=== PATIENT | male | born 1950 | race Caucasian/White ===

== ENCOUNTER → 2017-04-16 | Day surgery (SDC) | payer MEDICARE ==
[~2017-04-16] VITALS: Ht 177.8 cm; Wt 82.1 kg
[~2017-04-16] MED LIST: *ONDANSETRON 4 MG VIAL PERIprocedural Use ONLY ONE; ACETAMINOPHEN 1000 MG/100 ML 100 ML IV ONE; ACETAMINOPHEN/HYDROcodone 325 MG/7.5 MG TAB PO PRN; AMLO10TA2 PO; ATOR10TA15 PO; BETAMETHASONE SOD PHOS/ACETATE SUSP 30 MG/5 ML VIAL ONE; BUPIVACAINE/EPINEPHRINE 0.25% 50 ML VIAL ONE; CHLORHEXIDINE GLUCONATE 2 % 1 PACK (2 CLOTHS) TOPICAL PRN; CHLORHEXIDINE GLUCONATE 4% SOLN 120 ML BTL TOPICAL SCH; DO NOT ADM ANY ANTICOAGULANT DRUGS PRN; FAMOTIDINE 20 MG/2 ML VIAL ONE; GELATIN 12 MM/7 MM FOAM ONE; GENTAMICIN SULFATE 80 MG/2 ML VIAL ONE; GLYCOPYRROLATE 1 MG/5 ML SYRINGE IV PUSH ONE; HYDR-3288 PO; KETOROLAC TROMETHAMINE 30 MG/ML (IVP) VIAL IV PUSH ONE; LACTATED RINGER'S 1000 ML IV PRN; LEVO88TA2 PO; LIDOCAINE HCL 1% PF 5 ML SYRINGE OTHER ONE; LISI-515 PO; METF1000 PO; METOPROLOL TARTRATE 25 MG TAB PO PRN; MIDAZOLAM HCL 2 MG/2 ML VIAL ONE; MORPHINE SULFATE 2 MG/ML INJ IV PRN; NEOSTIGMINE 5 MG/5 ML SYRINGE IV PUSH ONE; NITR0.2D T-DERMAL; ONDANSETRON HCL 4 MG/2 ML VIAL IV ONE; PHENYLEPHRINE HCL 10 MG/ML VIAL IV ONE; PLAV75TA29 PO; POVIDONE IODINE 5% (ANTISEPSIS KIT) 4 APPLICATIONS EACH NARE PRN; PROPOFOL 200 MG/20 ML AMP IV ONE; ROCURONIUM INJ 50 MG/5 ML SYRINGE IV PUSH ONE; SODIUM CHLOR 0.9% 1000 ML INJ 1,000 ML IV SCH; SODIUM CHLORID 0.9% 500 ML IV PRN; SODIUM CHLORIDE 10 ML FLUSH BID IV FLUSH SCH; SODIUM CHLORIDE 10 ML FLUSH PRN IV FLUSH; ceFAZolin 2 GM PREMIX 50 ML IV SCH
--- NOTE | 2017-04-16 11:15 | PD.OP ---
cc: Сергей Richey. Operative Report Date of Surgery: Apr 16, 2017 Preoperative Diagnosis: lumbar spinal stenosis, L4 5. Herniated nucleus pulposus L4 5, central. Bilateral lumbosacral radiculopathy, left greater than right Postoperative Diagnosis: Same Procedure: Bilateral lumbar laminectomy from the left L4, L5, lateral recess decompression , bilateral. Resection herniated nucleus pulposus L4 5. Use of dilation port and microscope Anesthesia: Gen. Surgeon: Сергей Richey Career Specialist(s): ADDY Pagan Operation and Findings: EBL: 50 cc INDICATION: Patient is a 66-year-old male with significant bilateral leg pain. Investigative studies shows evidence of a high-grade spinal stenosis at L4 5 associated with a large sequestered central disc herniation at the same level. He presents for surgical treatment. NOTE: Divya Pagan PA-C was present for the entire surgical procedure as my assistant analyst. In my medical opinion her skill and care was necessary for the proper management of this patient. PROCEDURE: The patient was brought to the operating room and anesthetized in the supine position. The patient was rolled to a prone position on a Salomon frame on a Deo table. All pressure points were protected in the back was scrubbed with alcohol followed by Hibiclens followed by ChloraPrep and draped sterilely. A timeout was done and antibiotics were given. AP and lateral radiographic images were used to identify the proper levels and perform skin markings. We started from the left side at the L4 5 level. A paramedian incision was made and an off-midline fascial incision was made. A dilating system was placed down to the interlaminar space and held provisionally to the side of the table. The microscope was brought into the field. A high-speed bur under the microscope was used to perform a bilateral laminectomy from that side. A lateral recess decompression laterally was accomplished using straight and angled Kerrison punches. A partial medial facetectomy was accomplished. The crossing and exiting nerve roots were completely decompressed. A retractor was placed underneath the left crossing L5 nerve root. Toward midline there was a large sequestered disc herniation. Multiple fragments were removed. A small annulotomy was performed. A partial discectomy was accomplished. There was no compression upon any of the nerve roots. All the fragments were floated free from the canal. The wound was irrigated copiously. A small piece of Gelfoam with Celestone was placed into the epidural space. Hemostasis was controlled. The deep fascia was approximated with interrupted 0 Vicryl suture subcutaneous suture with 2-0 Vicryl suture and skin with running intradermal 3-0 Vicryl followed by Dermabond. A field block with local anesthesia was utilized. A sterile dressing was applied. The sponge count and needle counts and instrument counts were all correct. The patient tolerated the procedure well as taken to the recovery room in satisfactory condition. FINDINGS: Is evidence of a large sequestered disc herniation centrally. There was a high-grade bilateral lateral recess stenosis. There was no complication that was appreciated. Сергей Richey MD Apr 16, 2017 11:14
--- NOTE | 2017-04-16 12:10 | RADRPT ---
EXAM DATE/TIME: 04/16/2017 09:57 [place] COMPARISON: No previous studies available for comparison. INDICATIONS : L4-L5 Laminectomy. MEDICAL HISTORY : None. SURGICAL HISTORY : None. ENCOUNTER: Initial ACUITY: 1 day PAIN SCORE: Non-responsive. LOCATION: lumbar FINDINGS: A single lateral view of the lumbar spine was performed. There is a surgical instrument directed tow ards the L4-L5 level. CONCLUSION: Localization as described above. Sedrick Harrell MD on April 16, 2017 at 12:07 Board Certified Radiologist. This report was verified electronically.
[2017-04-16 14:00] VITALS: BP 127/60; PULSE 60; RESP 18; TEMP 97.5; O2SAT 96
== END | disposition home or self-care (01) ==
LOC: HSDC 06:42
PROVIDERS: ATTEND Orthopaedic Surgery Orthopaedic Surgery of the Spine
DX: M48.061 Spinal stenosis, lumbar region without neurogenic claudication (principal); M51.16 Intervertebral disc disorders with radiculopathy, lumbar region; I10 Essential (primary) hypertension; E78.5 Hyperlipidemia, unspecified
CPT/HCPCS: 00630; 63047; 72020; 76000; J0131; J0690; J0702; J1580; J1885; J2250; J2370; J2405; J2710; J3010; J7030; J7120

== ENCOUNTER 2018-01-14 06:31 | Inpatient (IN) ==
[2018-01-14] MEDS ORDERED: Metoprolol Tartrate 25 MG Tablet PO ONE (07:15)
[2018-01-14] MEDS ORDERED: Chlorhexidine 4% Topical 120 APPLIC/120 ML Bottle TOPICAL SCH (07:15)
[2018-01-14] MEDS ORDERED: Sodium Chlor 0.9% Inj 500 ML IV.CONT ONE (07:15)
[2018-01-14] MEDS ORDERED: Chlorhexidine Gluconate 2% 1 Pack (2 Cloths) TOPICAL ONE (07:15)
[2018-01-14] MEDS ORDERED: ceFAZolin 2 GM Premix Inj 2 GM/50 ML PIGGYBACK IV.SIG SCH (07:30)
[2018-01-14] MEDS ORDERED: Vancomycin Inj 1,000 MG in Sodium Chlor 0.9% Inj 250 ML IV.SIG SCH (07:30)
[2018-01-14] MEDS ORDERED: Sodium Chlor 0.9% Inj 40 ML, Bupivacaine Liposo PF 1.3% Inj 20 ML P-ARTICULR SCH ×2 (08:00)
[2018-01-14] MEDS ORDERED: TRANEXAMIC ACID IV.SIG SCH (08:00)
[2018-01-14] MEDS ORDERED: SODIUM CHLOR 0.9% IV.SIG SCH (08:00)
[2018-01-14] MEDS ORDERED: Bupivacaine 0.5% Inj 50 ML MDV Vial ONE (08:52)
[2018-01-14] MEDS ORDERED: Lidocaine PF 1% Inj 5 ML Vial ONE (08:52)
[2018-01-14] MEDS ORDERED: Propofol Inj 500 MG/50 ML Vial ONE (09:36)
[2018-01-14] MEDS ORDERED: Bupivacaine/Epinephrine Inj 0.25% 50 ML Vial ONE (11:14)
[2018-01-14] MEDS ORDERED: Bupivacaine/Epinephrine PF Inj 0.25% 10 ML Vial ONE (11:14)
[2018-01-14] MEDS ORDERED: Bisacodyl 10 MG Supp RECTAL PRN (13:22)
[2018-01-14] MEDS ORDERED: Morphine Inj 4 MG/ML Vial IV.PUSH PRN (13:22)
[2018-01-14] MEDS ORDERED: Post-op Orders (for Pharmacy) OTHER STA (13:22)
--- NOTE | 2018-01-14 13:28 | P.OP ---
- Preoperative Diagnosis (1) Osteoarthritis of left knee - Postoperative Diagnosis (1) Osteoarthritis of left knee Date of procedure: 01/14/18 Procedure: Left total knee arthroplasty, posterior stabilized Anesthesia: GETA Surgeon: Сергей Richey MD Glass Handler: ADDY Pagan Operation and Findings: EBL: 50 INDICATION: This patient presents with long-standing arthritis of the knee. Attachment record documents conservative measures. The patient now presents for surgical treatment. NOTE: Divya Pagan PA-C was present for the entire surgical procedure as my cutter first. In my medical opinion her skill and care was necessary for proper management of this patient. TOURNIQUET TIME: 67 minutes COMPANY: Paul FEMUR: Size 7, posterior stabilized TIBIA: Size 6, fixed-bearing PATELLA: 32 mm POLYETHYLENE INSERT: 11 mm PROCEDURE: This patient was brought the operating room and anesthetized in the supine position. The patient was positioned supine on the table. The tourniquet was placed about the thigh, and the leg was scrubbed with alcohol followed by Hibiclens followed by ChloraPrep and draped sterilely. A timeout was done, and antibiotics were given. After exsanguination the tourniquet was inflated to 250 mmHg. An anterior incision was made and a median parapatellar arthrotomy was performed. The patella was released laterally and subluxed allowing freehand cut of the patella which was then sized. A metal cap was placed over the exposed patellar surface for protection. A ems helicopter pilot hole was placed in the distal femur allowing a 6 valgus cut removing 10 mm from the distal femur. Anterior posterior and chamfer cuts were made. The posterior stabilize osteotomy was made. The attention was directed to the tibia. Retractors were positioned. The external alignment guide was used allowing the lateral tibia to be used as referencing guide and cut utilizing an oscillating saw taking care to avoid any injury to the surrounding soft tissues. This was sized properly. Trial reduction showed that the insert fit nicely. The patient had range of motion extension 0 flexion 125. A medial release was not necessary. The bony surfaces prepared. On the back table 2 packets of methylmethacrylate were mixed. The components were cemented. Excess cement was removed. The tourniquet let down and hemostasis was controlled. The final plastic insert was inserted. Range of motion was the same as previously noted. A drain was brought through a separate stab incision. The arthrotomy was repaired with interrupted #1 Vicryl suture, subcutaneous tissue 2-0 Vicryl suture and skin with metallic sparkle A sterile dressing was applied. Sponge counts, needle counts and instrument counts were all correct. The patient tolerated procedure well and was taken to recovery in satisfactory condition. FINDINGS: There was severe osteoarthritis. Moderate to advanced inflammatory changes were seen involving the synovium. A partial synovectomy was accomplished. The final solution appeared to be excellent.
--- NOTE | 2018-01-14 13:31 | P.DCO ---
- Physical Therapy Physical Therapy: Gait training (5 days/week) Knee: Total knee, Protocol: Left, Full weight bearing Left Lower Extremity Weight Bearing: Weight bearing as tolerated Left Lower Extremity Range of Motion: Active ROM - Nursing RN: 3 days/week x 2 weeks Dressing changes: Do not change dressing (If drainage significant, daily dressing change with alcohol) - Certification Need for Home Health services: I have seen patient Arvind Hyatt on 01/14/18. My clinical findings support the need for the requested home health care services because: Need for Home Health Services: High risk of falls Homebound Certification: I certify that my clinical findings support that this patient is homebound because: Homebound Certification: Unsteady gait/balance
[2018-01-14] MEDS ORDERED: fentaNYL Citrate Inj 100 MCG/2 ML Ampul ONE (13:51)
[2018-01-14] MEDS ORDERED: *morphine SULFATE 10 MG/ML PERIprocedure ONLY ONE (14:26)
--- NOTE | 2018-01-14 14:38 | XR ---
EXAM DATE: 01/14/2018 2:11 PM EDT AGE/SEX: 67 years / Male INDICATIONS: Post op left knee. CLINICAL DATA: This is the patient's initial encounter. Patient reports that signs and symptoms have been present for 1 day and indicates a pain score of Nonresponsive. MEDICAL/SURGICAL HISTORY: None. None. COMPARISON: No prior exams available for comparison. FINDINGS: 2 view left knee demonstrates a total knee arthroplasty has been placed. There is excellent alignment . There is no visible fracture. Patella is intact. CONCLUSION: Status post total knee arthroplasty in excellent position Electronically signed by: Selvin Bryant MD 01/14/2018 2:36 PM EDT
[2018-01-14] MEDS: ceFAZolin 1 GM Premix Inj 1 GM/50 ML FROZ.PIGGY IV.SIG SCH (17:41)
[2018-01-14] MEDS ORDERED: Temazepam 15 MG Capsule PO PRN (21:00)
[2018-01-14] MEDS: Multivitamin/Minerals Therapeutic Tablet PO SCH (22:33)
[2018-01-14] MEDS: Senna/Docusate Sodium 8.6/50 MG Tablet PO SCH (22:33)
[2018-01-15] MEDS: ceFAZolin 1 GM Premix Inj 1 GM/50 ML FROZ.PIGGY IV.SIG SCH ×2 (01:19→05:38)
[2018-01-15] MEDS ORDERED: Menthol 5.8 MG Lozenge BUCCAL PRN (03:00)
[2018-01-15] MEDS: Levothyroxine 88 MCG Tablet PO SCH (05:38)
--- NOTE | 2018-01-15 07:45 | P.PNOP ---
Subjective Interval history: Doing well. Comfortable. No complaints Physical Exam Vital signs: Vital Signs 01/14/18 13:40 01/14/18 13:45 01/14/18 14:00 Temperature 97.4 F L Pulse Rate 123 H 102 H 86 Respiratory Rate 17 17 12 Blood Pressure 168/74 H 174/79 H 167/79 H Pulse Oximetry 100 100 100 01/14/18 14:15 01/14/18 14:30 01/14/18 14:45 Temperature Pulse Rate 87 81 88 Respiratory Rate 14 13 13 Blood Pressure 163/75 H 159/76 H 150/70 H Pulse Oximetry 97 99 100 01/14/18 15:00 01/14/18 16:00 01/14/18 20:00 Temperature 97.4 F L 97.4 F L 97.3 F L Pulse Rate 96 H 91 H 99 H Respiratory Rate 19 20 16 Blood Pressure 150/73 H 141/74 H 147/76 H Pulse Oximetry 100 97 94 L 01/15/18 00:00 01/15/18 04:00 Temperature 97.4 F L 97.8 F Pulse Rate 97 H 88 Respiratory Rate 15 15 Blood Pressure 169/87 H 137/76 Pulse Oximetry 95 98 Intake & Output 01/14/18 01/15/18 01/15/18 18:59 06:59 18:59 Intake Total 1848.32 / 1848.32 1800 / 1800 Output Total 250 / 250 1100 / 1100 Balance 1598.32 / 1598.32 700 / 700 Weight 83.2 kg 82.5 kg Intake: IV 208.32 / 208.32 1100 / 1100 LR 1000 mL Inj 1,000 ML @ 80 1000 / 1000 mls/hr IV.CONT .[id number] [facility] Rx# :[id number] Cyklokapron Inj 832 MG In NS 108.32 / 108.32 Inj 100 ML @ 200 mls/hr IV.SIG ONCE [facility] Rx#:[id number] Ancef 1 GM Premix Inj 1 gm In 50 / 50 100 / 100 50 ml @ 100 mls/hr IV.SIG Q6H [facility] Rx#:[id number] Ancef 2 GM Premix Inj 2 gm In 50 / 50 50 ml @ 100 mls/hr IV.SIG LEARNING FACILITATOR [facility] Rx#:[id number] Oral 240 / 240 700 / 700 Anesthesia Amount 1400 / 1400 Output: Urine 200 / 200 1100 / 1100 Estimated Blood Loss 50 / 50 Other: Date of Last Bowel Movement 01/14/18 01/14/18 # Bowel Movements 0 Weight On Admission 83.2 kg Narrative: Dressing dry. No significant swelling. Neuro exam normal. X-ray looks fine Results - Labs Laboratory Results - last 24 hr 01/14/18 07:20 Blood Type A Negative Antibody Screen Negative MTS Gel Crossmatch See Detail - Imaging Impressions Knee X-Ray 01/14/18 13:22 CONCLUSION: Status post total knee arthroplasty in excellent position Assessment and Plan - Assessment and Plan Osteoarthritis left knee. Varus deformity left knee. SURGERY: Left TKA: POD #1. PLAN: Weightbearing as tolerated. [place] for pain. Discharge today. No dressing change. Knee immobilizer at night for 4 weeks. Home health care/home PT. Orthopedically stable.
--- NOTE | 2018-01-15 08:00 | P.DS ---
Date of admission: 01/14/18 06:31 Primary care physician: Raz Randolph MD Attending physician on discharge: Сергей Richey Anticipated date of discharge: 01/15/18 DS: Diagnosis - Discharge Diagnosis (1) Osteoarthritis of left knee Status: Acute DS: Medications - Discharge Medications Prescriptions: aspirin 81 mg PO BID #60 tab hydrocodone-acetaminophen 1 tab PO Q4H PRN #42 tab PRN Reason: Acute Pain DS: Summary Hospital Course: pod#1 [facility]. - Time Spent with Patient Total time spent providing and/or coordinating discharge services: Greater than 30 minutes - Quality: VTE Deep Vein Thrombosis/Pulmonary Embolism Present on Admission: No Exam Vital signs: Vital Signs 01/14/18 13:40 01/14/18 13:45 01/14/18 14:00 Temperature 97.4 F L Pulse Rate 123 H 102 H 86 Respiratory Rate 17 17 12 Blood Pressure 168/74 H 174/79 H 167/79 H Pulse Oximetry 100 100 100 01/14/18 14:15 01/14/18 14:30 01/14/18 14:45 Temperature Pulse Rate 87 81 88 Respiratory Rate 14 13 13 Blood Pressure 163/75 H 159/76 H 150/70 H Pulse Oximetry 97 99 100 01/14/18 15:00 01/14/18 16:00 01/14/18 20:00 Temperature 97.4 F L 97.4 F L 97.3 F L Pulse Rate 96 H 91 H 99 H Respiratory Rate 19 20 16 Blood Pressure 150/73 H 141/74 H 147/76 H Pulse Oximetry 100 97 94 L 01/15/18 00:00 01/15/18 04:00 Temperature 97.4 F L 97.8 F Pulse Rate 97 H 88 Respiratory Rate 15 15 Blood Pressure 169/87 H 137/76 Pulse Oximetry 95 98 Intake & Output 01/14/18 01/15/18 01/15/18 18:59 06:59 18:59 Intake Total 1848.32 / 1848.32 1800 / 1800 Output Total 250 / 250 1100 / 1100 Balance 1598.32 / 1598.32 700 / 700 Weight 83.2 kg 82.5 kg Intake: IV 208.32 / 208.32 1100 / 1100 LR 1000 mL Inj 1,000 ML @ 80 1000 / 1000 mls/hr IV.CONT .[id number] [facility] Rx# :[id number] Cyklokapron Inj 832 MG In NS 108.32 / 108.32 Inj 100 ML @ 200 mls/hr IV.SIG ONCE [facility] Rx#:[id number] Ancef 1 GM Premix Inj 1 gm In 50 / 50 100 / 100 50 ml @ 100 mls/hr IV.SIG Q6H [facility] Rx#:[id number] Ancef 2 GM Premix Inj 2 gm In 50 / 50 50 ml @ 100 mls/hr IV.SIG SECURITY SYSTEM ENGINEER [facility] Rx#:[id number] Oral 240 / 240 700 / 700 Anesthesia Amount 1400 / 1400 Output: Urine 200 / 200 1100 / 1100 Estimated Blood Loss 50 / 50 Other: Date of Last Bowel Movement 01/14/18 01/14/18 # Bowel Movements 0 Weight On Admission 83.2 kg Results Labs on day of discharge: Labs from last 24 hours 01/14/18 07:20 Blood Type A Negative Antibody Screen Negative MTS Gel Crossmatch See Detail - Impressions ITS Impressions Knee X-Ray 01/14/18 13:22 CONCLUSION: Status post total knee arthroplasty in excellent position Discharge Plan - Discharge Disposition Patient Disposition: /Home Health Service - Discharge Condition Condition: Good - Discharge Order Discharge Orders: Discharge Order (Routine); Ordered 01/15/18 Ordered By: Сергей Richey - Discharge Details Anticipated Discharge Date: 01/15/18 - Physicians Team Primary Care Provider: Raz Randolph Attending Provider: Сергей Richey - Rxs /Orders / Referrals /Forms Prescriptions: New aspirin 81 mg Tablet,Chewable 81 mg PO BID Qty: 60 RF: 0 hydrocodone-acetaminophen 7.5-325 mg Tablet 1 tab PO Q4H PRN (Reason: Acute Pain) Qty: 42 RF: 0 Continue amlodipine 10 mg Tablet 10 mg PO DAILY atorvastatin 10 mg Tablet 10 mg PO DAILY clopidogrel [Plavix] 75 mg Tablet 75 mg PO DAILY levothyroxine 88 mcg Tablet 88 mcg PO DAILY lisinopril 20 mg Tablet 20 mg PO DAILY metformin 1,000 mg Tablet 1,000 mg PO BID nitroglycerin [Nitro-Dur] 0.2 mg/hr Patch 24 Hour 1 patch TRANSDERMAL DAILY tamsulosin 0.4 mg Capsule 0.4 mg PO DAILY Ambulatory Orders / Order Sets / DME: Adjustable Commode 3-in-1 (1 each) (Routine) Location: Determined by Patient Ordered By: Сергей Richey Walker With Front Wheels (1 each) (Routine) Location: Determined by Patient Ordered By: Сергей Richey Referrals: Raz Randolph MD [Primary Care Provider] - See Instructions - Discharge Instructions Patient Printed Instructions: Hydrocodone/Acetaminophen (By mouth), Aspirin ( By mouth), How to Use an Incentive Spirometer (DC), How to Choose and Use a Walker (GEN), JOSÉ LUIS Hose (DC), Knee Replacement (DC) Additional Instructions: Full weight bearing José Luis hose as instructed til follow up with Surgeon 02/01 at 1:40 pm Follow up appt with Dr Richey at [facility] additional instruction sheet for Total Knee arthroplasty from Surgeons office provided at discharge - Post Discharge Care Plan Care Plan Goals: Discharge Care Plan Goals for LEFT Total Knee Replacement You have undergone knee replacement surgery. Your doctor replaced your painful joint with an artificial joint to relieve pain and restore movement. Here are some goals to help you heal well. Directions to Meet your Goals: 1. Activity & Exercises: * Take pain medicine as directed by your doctor. * Sit in chairs with arms. The arms make it easier for you to stand up or sit down. * Dont sit for more than 30 to 45 minutes at one time. * Nap if you are tired, but dont stay in bed all day. * Sleep with a pillow under your ankle, not your knee. Be sure to change the position of your leg during the night. * Wear the support stockings you were given in the hospital as directed by your surgeon. 2. Prevent Falls/Injury: The johnson to successful recovery is movement with walking and exercising your knee as directed by your doctor. * Arrange your household to keep the items you need handy. Keep everything else out of the way. * Remove items that may cause you to fall, such as throw rugs and electrical cords. * Use nonslip bath mats, grab bars, an elevated toilet seat, and a shower chair in your bathroom * Sit on a shower stool or chair when you shower to keep from falling. * Until your balance, flexibility, and strength improve, use a cane, crutches, a walker, handrails, or someone to help you. * Keep your hands free by using a backpack, janell pack, apron, or pockets to carry things * Walk up and down stairs with support. Try one step at a time. Use the railing if possible. * Dont drive until your doctor says its OK. * Dont drive while you are taking opioid pain medicine. 3. Precautions: * Prevent infection. Any infection will need to be treated immediately. Call your doctor right away if you think you might have an infection. * Tell your dentist that you have an artificial joint and take antibiotics as prescribed before any dental work. * Tell all your healthcare providers about your artificial joint before any medical procedure. * Maintain a healthy weight. Get help to lose any extra pounds. Added body weight puts stress on the knee. * Your medications may include blood-thinning medicine to prevent blood clots or antibiotics to prevent infection-prevent any falls or cuts 4. Incision Care: * Prevent infection by washing your hands often. If an infection occurs, it will need to be treated right away. * Call your doctor right away if you think you may have an infection. Symptoms include a fever or an incision that leaks white, green, or yellow fluid. * Don't soak your incision in water until your doctor says its OK. This means no hot tubs, bathtubs, or swimming pools. * Follow your doctor's instructions for changing the dressing. * Dont rub the incision, or apply creams or lotions to it. * If you notice any redness or drainage around the bandage site, contact your surgeon's office immediately. 5. Follow-Up: Do Not miss your follow-up appointment. Keep up with all your appointments and yearly check ups When to call your doctor: Call your doctor right away if you have: Fever of 100.4F (38C) or higher, or as directed by your doctor Shaking chills Stiffness, or inability to move the knee Increased swelling in your leg Increased redness, tenderness, or swelling in or around the knee incision Drainage from the knee incision Increased knee pain Call 911: Call 911 right away if you have: Chest pain Shortness of breath Any pain or tenderness in your calf
[2018-01-15] MEDS: Multivitamin/Minerals Therapeutic Tablet PO SCH ×2 (09:23→20:50)
[2018-01-15] MEDS: Senna/Docusate Sodium 8.6/50 MG Tablet PO SCH ×2 (09:23→20:55)
[2018-01-15] MEDS: amLODIPine 10 MG Tablet PO SCH (09:24)
[2018-01-15] MEDS: Lisinopril 20 MG Tablet PO SCH (09:24)
[2018-01-16 05:41] LABS: Hematocrit 33.4 % (39.0-51.0); Hemoglobin 11.5 gm/dL (13.0-17.0)
[2018-01-16] MEDS: Levothyroxine 88 MCG Tablet PO SCH (06:11)
--- NOTE | 2018-01-16 08:08 | P.PNOP ---
Subjective Interval history: Patient states he worked with PT yesterday and it was difficult. He states his pain is mildly controlled. He expresses interest in being discharged to rehab Physical Exam Vital signs: Vital Signs 01/15/18 12:00 01/15/18 16:00 01/15/18 16:50 Temperature 98.3 F 98.5 F 97.7 F Pulse Rate 83 83 73 Respiratory Rate 18 18 16 Blood Pressure 137/65 130/62 107/53 L Pulse Oximetry 98 97 97 01/15/18 20:00 01/16/18 00:00 01/16/18 04:00 Temperature 98.4 F 98.4 F Pulse Rate 93 H 97 H Respiratory Rate 17 17 Blood Pressure 131/62 149/66 H 121/62 Pulse Oximetry 94 L 96 Intake & Output 01/15/18 01/16/18 01/16/18 18:59 06:59 18:59 Intake Total 2350 / 2350 1000 / 1000 Output Total 1275 / 1275 425 / 425 Balance 1075 / 1075 575 / 575 Weight 83 kg Intake: IV 1250 / 1250 1000 / 1000 LR 1000 mL Inj 1,000 ML @ 80 1000 / 1000 1000 / 1000 mls/hr IV.CONT .[id number] [facility] Rx# :[id number] Vancomycin Inj 1,000 MG In NS 250 / 250 Inj 250 ML @ 250 mls/hr IV.SIG GUEST SERVICES OFFICER [facility] Rx#:[id number] Oral 1100 / 1100 Output: Urine 1275 / 1275 425 / 425 Other: # Bowel Movements 0 Narrative: Dressing dry. No significant swelling. Neuro exam normal. X-ray looks fine Results - Labs CBC & Chem 7: 01/16/18 04:31 Laboratory Results - last 24 hr 01/15/18 01/15/18 01/16/18 16:50 20:46 04:31 Hgb 11.5 L Hct 33.4 L POC Glucose 158 H 143 H - Procedures Left total knee arthroplasty Assessment and Plan - Problem List (1) Osteoarthritis of left knee Code(s): M17.12 - Unilateral primary osteoarthritis, left knee Status: Acute - Assessment and Plan Osteoarthritis left knee. Varus deformity left knee. SURGERY: Left TKA: POD #2. PLAN: Weightbearing as tolerated. [place] for pain. No dressing change. Knee immobilizer at night for 4 weeks. Home health care/home PT. Orthopedically stable. Clear for discharge from orthopedic standpoint to home with home health care
[2018-01-16] MEDS: Lisinopril 20 MG Tablet PO SCH (08:46)
[2018-01-16] MEDS: amLODIPine 10 MG Tablet PO SCH (08:47)
[2018-01-16] MEDS: Multivitamin/Minerals Therapeutic Tablet PO SCH (08:47)
[2018-01-16] MEDS: Senna/Docusate Sodium 8.6/50 MG Tablet PO SCH (08:47)
== END 2018-01-16 16:22 | disposition home health service (06) ==
LOC: HSDI 06:31 → N06 15:26
PROVIDERS: ADMIT Orthopaedic Surgery Orthopaedic Surgery of the Spine; ATTEND Orthopaedic Surgery Orthopaedic Surgery of the Spine